=== PATIENT | male | born 1975 | race African-American/Black ===

== ENCOUNTER 2021-05-31 14:46 | Emergency (ER) | payer BC ==
[~2021-05-31] VITALS: Ht 195.6 cm; Wt 98.0 kg
[2021-05-31 14:54] VITALS: BP 134/76
--- NOTE | 2021-05-31 15:14 | NUR ---
48 Y/O MALE BIB SELF C/O ZUNIGA 5/10 PRESSURE BY THE FOREHEAD AND NOSE, POSITIVE TRANSILLUMINATION, NON-PRODUCTIVE COUGH, RUNNY NOSE X3 WEEKS. PT STATES THAT "BECAUSE OF THE CONSTANT RUNNY NOSE AND SNEEZING THEYVE BEEN HAVING NOSEBLEEDS CONSTANTLY". NOTED WITH BRIGHT RED BLOOD BY THE LEFT NOSTRIL. TOOK IBUPROFEN AND SUDOFED WITH MINIMAL EFFECT PMH; DENIES NKA
[2021-05-31] MEDS ORDERED: PHENYLEPHRINE 1% 15 ML BTL NS PRN (15:40)
[2021-05-31] MEDS ORDERED: AMOX-1230 PO (15:47)
--- NOTE | 2021-05-31 16:05 | NUR ---
Patient discharged with v/s stable. Written and verbal after care instructions ABOUT SINUSITIS given and explained. Patient alert, oriented and verbalized understanding of instructions. Ambulatory with steady gait. All questions addressed prior to discharge. ID band removed. Patient advised to follow up with PMD. Rx of AMOX-CLAV [id number] given. Patient educated on indication of medication including possible reaction and side effects. Opportunity to ask questions provided and answered.
== END 2021-05-31 16:05 | disposition home or self-care (01) ==
LOC: MED 14:46
DX: J01.80 Other acute sinusitis (principal); R04.0 Epistaxis
CPT/HCPCS: 99283

== ENCOUNTER 2021-06-20 03:30 | Emergency (ER) | payer BC ==
[~2021-06-20] VITALS: Ht 195.6 cm; Wt 102.1 kg
[~2021-06-20 03:30] MED LIST: AMOX-1230 PO
[2021-06-20 03:35] VITALS: BP 112/72
--- NOTE | 2021-06-20 03:41 | NUR ---
PT TAKEN TO BED 8
--- NOTE | 2021-06-20 03:46 | NUR ---
Dr. Patrick at bedside to exam patient.
[2021-06-20] MEDS ORDERED: ALBUTEROL SULFATE/IPRATROPIU 3 ML SOL IH ONE (03:50)
[2021-06-20] MEDS ORDERED: predniSONE 20 MG TAB PO ONE (03:50)
--- NOTE | 2021-06-20 03:54 | NUR ---
Respiratory Therapist at bedside for respiratory intervention.
--- NOTE | 2021-06-20 03:58 | NUR ---
X-Ray at bedside.
--- NOTE | 2021-06-20 04:03 | NUR ---
PT BIB SELF WITH C/O SOB SINCE SATURDAY. PT STATES IT FEELS TIGHT CONSTANTLY. PT HAS A COUGH WITH CONGESTION AND MUCUS. PT WAS IN THE HOSPITAL ANF WAS DIAGNOSED WITH SINUSITIS. DENIES N/V/D; SKIN IS PINK/WARM/DRY; AAOX4 WITH EVEN AND STEADY GAIT; PT WAS PRESCRIBED AUGMENTIN ALLERGIES:NONE, SEASONAL PMH: SLEEP APNEA SINCE HE WAS 3
[2021-06-20] MEDS ORDERED: PRED20TA5 PO (05:43)
[2021-06-20] MEDS ORDERED: ALBU0.0912 IH (05:43)
[2021-06-20 06:20] VITALS: BP 113/72
--- NOTE | 2021-06-20 06:23 | NUR ---
0620-b Patient discharged with v/s stable. Written and verbal after care instructions given and explained. Patient alert, oriented and verbalized understanding of instructions. Ambulatory with steady gait. All questions addressed prior to discharge. ID band removed. Patient advised to follow up with PMD. Rx of prefnisone and albuterol sulfate given. Opportunity to ask questions provided and answered.
--- NOTE | 2021-06-20 06:25 | NUR ---
The patient's care was reviewed and supervised by Pascale Garzon RN.
== END 2021-06-20 06:23 | disposition home or self-care (01) ==
LOC: MED 03:30
DX: J06.9 Acute upper respiratory infection, unspecified (principal); Z20.822 Contact with and (suspected) exposure to COVID-19; Z79.899 Other long term (current) drug therapy
CPT/HCPCS: 71045; 87426; 87804; 94640; 99285; J7512; Q0092

== ENCOUNTER 2022-03-19 17:44 | Emergency (ER) | payer BC ==
[~2022-03-19] VITALS: Ht 195.6 cm; Wt 98.9 kg
[~2022-03-19 17:44] MED LIST changes: +ALBU0.0912 IH; +PRED20TA5 PO
[2022-03-19 17:50] VITALS: BP 118/87
[2022-03-19] MEDS ORDERED: AZIT250T4 PO (20:07)
[2022-03-19] MEDS ORDERED: PRED20TA5 PO (20:07)
[2022-03-19] MEDS ORDERED: BPM/118S31 PO (20:07)
[2022-03-19] MEDS ORDERED: ALBU0.0912 IH (20:07)
--- NOTE | 2022-03-19 20:12 | NUR ---
pt provided with discharge and aftercare instructions provided by Jayesh Mustafa. Rx of albuterol, azithromycin, bromfed, prednisone.
== END 2022-03-19 20:12 | disposition home or self-care (01) ==
LOC: MED 17:44
DX: J40 Bronchitis, not specified as acute or chronic (principal); R05.9 Cough, unspecified; R51.9 Headache, unspecified; R09.81 Nasal congestion; Z79.899 Other long term (current) drug therapy
CPT/HCPCS: 71045; 99283

== ENCOUNTER 2022-11-20 23:01 | Emergency (ER) | payer BC ==
[~2022-11-20] VITALS: Ht 193 cm; Wt 100.2 kg
[~2022-11-20 23:01] MED LIST changes: +AZIT250T4 PO; +BROM118S70 PO
[2022-11-20 23:38] VITALS: BP 125/79; PULSE 86; RESP 18; TEMP 98.6; O2SAT 99
[2022-11-21] MEDS ORDERED: HYDR28GE TP (03:11)
[2022-11-21] MEDS ORDERED: FLONAS NS ×2 (03:13)
[2022-11-21] MEDS: KETOROLAC 30 MG/ML VIAL IM ONE (03:22)
[2022-11-21] MEDS: LORATADINE 10 MG TAB PO ONE (03:25)
== END 2022-11-21 03:55 | disposition home or self-care (01) ==
LOC: MED 23:01
DX: L25.9 Unspecified contact dermatitis, unspecified cause (principal); Z88.5 Allergy status to narcotic agent; Z88.8 Allergy status to other drugs, medicaments and biological substances; Z79.899 Other long term (current) drug therapy
CPT/HCPCS: 96372; 99283